=== PATIENT | female | born 1970 | race Caucasian/White ===

== ENCOUNTER 2017-01-09 09:06 | Emergency (ER) | payer OTHER ==
[~2017-01-09 09:06] MED LIST: EMTRICITABINE/TENOFOVIR 200MG/300MG TAB PO SCH; RALTEGRAVIR 400 MG TAB PO SCH
[2017-01-09 09:12] VITALS: BP 117/76; PULSE 76; RESP 16; TEMP 98.2; O2SAT 98
--- NOTE | 2017-01-09 09:14 | EDPHY ---
H & P Stated Complaint: HIGH EXPOSURE NEDDLE STICK Source: Patient Exam Limitations: No limitations - Personal History Current Tetanus/Diphtheria Vaccine: Yes - Medical/Surgical History Hx Asthma: No Hx Chronic Respiratory Disease: No Hx Diabetes: No Hx Cardiac Disease: No Hx Renal Disease: No Hx Cirrhosis: No Hx Alcoholism: No Hx HIV/AIDS: No Hx Splenectomy or Spleen Trauma: No - Family History Significant Family History: No pertinent family hx - Social History Smoking Status: Never smoked Alcohol Use: None Drug Use: None Time Seen by Provider: 01/09/17 09:12 HPI/ROS: CHIEF COMPLAINT: needlestick HISTORY OF PRESENT ILLNESS: 46-year-old female presents emergency department 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 Needle stick to left middle finger. Patient reports she wash this with soap and water immediately afterwards and then with chlorhexidine. Patient reports it did break skin and bled a little bit. Patient tetanus vaccine is up-to-date and she has had the hepatitis-B vaccine. (Cara Beltran) - Physical Exam Exam: GEN: Awake, alert, oriented, no acute distress RESP: nl resp effort MSK: Normal SKIN: [place], warm, dry, no break in skin seen (Cara Beltran) Constitutional: Initial Vital Signs Temperature (C) 36.8 C 01/09/17 09:09 Heart Rate 76 01/09/17 09:09 Respiratory Rate 16 01/09/17 09:09 Blood Pressure 117/76 01/09/17 09:09 O2 Sat (%) 98 01/09/17 09:09 O2 Delivery Mode Room Air Allergies/Adverse Reactions: No Known Allergies Allergy (Unverified 01/09/17 09:09) Home Medications: Medication Instructions Recorded Emtricitabine/Tenofovir [Truvada 1 each PO DAILY #3 tablet 01/09/17 200 mg-300 mg Tablet] Raltegravir [Isentress] 400 mg PO BID #6 tab 01/09/17 Ritalin 10mg (*) 01/09/17 Medical Decision Making ED Course/Re-evaluation: Labs have been drawn on patient prior to starting post exposure prophylaxis. 10am- I spoke with Yady greer with Infectious Disease who recommends starting post exposure prophylaxis with Truvada and Isentress. I have spoken with the nurse taking care of the source patient on , the source patient agrees to have his blood drawn. I have ordered HIV RNA quant by PCR, hep C antibody and hep C rna per Dr. England's recommendation. (Cara Beltran) Other Provider: The patient was evaluated and managed by the Physician [employer]/ Nurse Practitioner. I discussed the patient's presentation and course with the midlevel provider with them and agree with the evaluation. My co-signature indicates that I have reviewed this chart and I agree with the findings and plan of care as documented. I am the secondary supervising physician. (Gretchen Jeffers) - Data Points Laboratory Results: Laboratory Results 01/09/17 09:20 01/09/17 09:20 01/09/17 09:20 HIV 1&2 Antibody NEGATIVE (NEGATIVE) Medications Given: Discontinued Medications Emtricitabine/Tenofovir (Truvada) 1 tab PO EDNOW ONE Stop: 01/09/17 10:03 Last Admin: 01/09/17 10:21 Dose: 1 tab Raltegravir (Isentress) 400 mg PO EDNOW ONE Stop: 01/09/17 10:03 Last Admin: 01/09/17 10:21 Dose: 400 mg Departure - Departure Disposition: Home, Routine, Self-Care Clinical Impression: HIV exposure Condition: Good Instructions: Postexposure Prophylaxis (ED) Additional Instructions: Take Truvada once daily, take raltegravir twice daily. Call [facility] in the morning to schedule an appointment to be seen. Return to the emergency department for any questions or concerns. Referrals: [facility] [Outside] - As per Instructions Prescriptions: Emtricitabine/Tenofovir [Truvada 200 mg-300 mg Tablet] 1 each PO DAILY #3 tablet Raltegravir [Isentress] 400 mg PO BID #6 tab
[2017-01-09 09:27] LABS: ADD DIFF? NO; ADD MORPH? NO; ADD SCAN? NO; ATYPICAL LYMPHOCYTE FLAG 20 (0-99); FRAGMENT RBC FLAG 0 (0-99); HEMATOCRIT 42.9 % (38.0-47.0); HEMOGLOBIN 15.2 g/dL (12.6-16.3); LEFT SHIFT FLG 0 (0-99); LIPEMIA HEMOLYSIS FLAG 90 (0-99); MEAN CELL HEMOGLOBIN 31.3 pg (27.9-34.1); MEAN CELL HEMOGLOBIN CONCENTR. 35.4 g/dL (32.4-36.7); MEAN CELL VOLUME 88.3 fL (81.5-99.8); PLATELET CLUMPS FLAG 0 (0-99); PLATELET COUNT 250 10^3/uL (150-400); RED BLOOD CELL COUNT 4.86 10^6/uL (4.18-5.33); RED CELL DISTRIBUTION WIDTH 12.2 % (11.5-15.2)
[2017-01-09 09:38] LABS: INR 0.95 (0.83-1.16); PROTIME(PATIENT) 12.6 SEC (12.0-15.0)
[2017-01-09 09:47] LABS: ALANINE AMINOTRANSFERASE 33 IU/L (9-52); ALBUMIN 4.4 g/dL (3.5-5.0); ALKALINE PHOSPHATASE 68 IU/L (38-126); ANION GAP 11 mEq/L (8-16); ASPARTATE AMINOTRANSFERASE 22 IU/L (14-46); BILIRUBIN,TOTAL 0.5 mg/dL (0.1-1.4); BILIRUBIN-CONJUGATED 0.3 mg/dL (0.0-0.5); BILIRUBIN-UNCONJUGATED 0.2 mg/dL (0.0-1.1); CALCIUM 10.1 mg/dL (8.5-10.4); CARBON DIOXIDE 24 mEq/l (22-31); CHLORIDE 107 mEq/L (97-110); CREATININE 0.9 mg/dL (0.6-1.0); GLOMERULAR FILTRATION RATE > 60; GLUCOSE 98 mg/dL (70-100); POTASSIUM 4.1 mEq/L (3.5-5.2); SODIUM 142 mEq/L (134-144); TOTAL PROTEIN 7.7 g/dL (6.3-8.2)
[2017-01-09] MEDS ORDERED: EMTRICITABINE/TENOFOVIR 200MG/300MG TAB PO ONE (10:02)
[2017-01-09] MEDS ORDERED: RALTEGRAVIR 400 MG TAB PO ONE (10:02)
[2017-01-10 03:28] LABS: HEPATITIS B SURFACE ANTIBODY > 1000.00 (NEGATIVE); HEPATITIS B SURFACE ANTIBODY POSITIVE (NEGATIVE)
== END 2017-01-09 10:30 | disposition home or self-care (01) ==
LOC: EEVIPCON 09:06
DX: Z20.6 Contact with and (suspected) exposure to human immunodeficiency virus [HIV] (principal)
CPT/HCPCS: G0472